=== PATIENT | female | born 1995 | race African-American/Black ===

== ENCOUNTER 2022-07-08 04:12 | Emergency (ER) | payer SELFPAY ==
[2022-07-08] MEDS ORDERED: Ketorolac Tromethamine 30 MG/ML VIAL ONE (05:03)
== END 2022-07-08 06:30 | disposition home or self-care (01) ==
LOC: CSHERS 04:12
DX: S00.212A Abrasion of left eyelid and periocular area, initial encounter (principal); S20.319A Abrasion of unspecified front wall of thorax, initial encounter; M54.2 Cervicalgia; J45.909 Unspecified asthma, uncomplicated; Y04.8XXA Assault by other bodily force, initial encounter
CPT/HCPCS: 70450; 72125; 96372; J1885